=== PATIENT | male | born 1940 | race Caucasian/White ===

== ENCOUNTER 2018-05-15 10:30 | Day surgery (SDC) | payer MEDICARE ==
[2018-05-14 10:27] VITALS: BMI 21.1
[2018-05-15] MEDS ORDERED: Iodixanol 320 MG/ML 200 ML BOTTLE IV ONE (11:04)
[2018-05-15 11:23] LABS: BASO # 0.03 K/mm3 (0.0-2.0); BASO % 0.4 % (0.0-3.0); EOS # 0.1 (0.0-0.7); EOS % 0.7 % (1.5-5.0); GRAN # 5.46 (1.4-6.5); GRAN % 70.9 % (50.0-68.0); HEMOGLOBIN 15.9 g/dL (14.0-18.0); LYMPH # 1.8 (1.2-3.4); LYMPH % 22.9 % (22.0-35.0); MEAN CELL VOLUME 92.7 fl (80.0-105.0); MEAN CORPUSCULAR HEMOGLOBIN 32.3 pg (25.0-35.0); MEAN CORPUSCULAR HGB CONC 34.9 g/dl (31.0-37.0); MEAN PLATELET VOLUME 9.7 fl (7.0-11.0); MONO # 0.4 (0.1-0.6); MONO % 5.1 % (1.0-6.0); RBC 4.92 10^6/uL (3.5-6.1); WHITE BLOOD COUNT 7.7 10^3/ul (4.5-11.0)
[2018-05-15 11:25] VITALS: O2SAT 99
[2018-05-15 11:31] LABS: INR 0.97; PARTIAL THROMBOPLASTIN TIME 32.6 Seconds (25.1-36.5); PROTHROMBIN TIME 11.1 SECONDS (9.4-12.5)
[2018-05-15 11:32] LABS: BLOOD UREA NITROGEN 21 mg/dL (7-21); CALCIUM 9.4 mg/dL (8.4-10.5); GFR NON-AFRICAN AMERICAN 54; HDL CHOLESTEROL 69 mg/dL (29-60)
[2018-05-15 11:42] LABS: LDL CHOLESTEROL 114 mg/dL (0-129)
[2018-05-15] MEDS ORDERED: Lidocaine PF 2% (5 ml) Inj (For Cardiac Arrhy) ONE (13:15)
[2018-05-15] MEDS ORDERED: Adenosine 90 mg/30mL IV ONE (13:15)
[2018-05-15] MEDS ORDERED: Midazolam 2 MG/2 ML VIAL ONE ×2 (16:56→17:18)
[2018-05-15 22:10] VITALS: RESP 18; TEMP 97.8
[2018-05-15 22:12] VITALS: BP 134/75; PULSE 70
--- NOTE | 2018-05-30 16:47 | CARDCATH ---
PROCEDURE DATE: 05/15/2018 INDICATION: Mr. Ozzie Stiles is a 78-year-old male, who presented to [facility] with [id number] on 05/09/2018, underwent a diagnostic cardiac cath showing high-grade stenosis of the left circumflex and diagonal artery. He subsequently was discharged and brought back on 05/15/2018 to [facility] for his staged intervention of the left circumflex and the diagonal high-grade stenosis. PROCEDURE PERFORMED: Diagnostic coronary angiogram with percutaneous transluminal coronary angioplasty and stenting of mid left circumflex coronary artery, deployment of 3 x 28 and 3.5 x 18 [place] drug-eluting stent, regeneration from 90% down to 0%. Percutaneous transluminal coronary angioplasty, drug eluting stent of diagonal 1 with a 2.25 x 22 [place] drug eluting stent, regeneration from 75% down to 0% RISHI 3 flow. INTERVENTION PERFORMED: Radial approach was employed. PTCA, stenting of left circumflex was done. Initially a 3 balloon was used for dilatation, subsequently a 3 x 28 and 3.5 x 18 [place] drug eluting stents were deployed in the circ and regeneration down to 0% RISHI 3 flow. Subsequently, PTCA, stenting of the diagonal was done with deployment of a stent. Final angiogram done showed regeneration down to 0% RISHI 3 flow. IMPRESSION: Successful percutaneous transluminal coronary angioplasty, stenting of left circumflex with 2 drug-eluting stents. Successful percutaneous transluminal coronary angioplasty, stenting of diagonal with drug-eluting stent, regeneration down to 0%. RECOMMENDATIONS: The patient can be discharged home in 3 hours. Continue to do antiplatelet therapy for 1 year, guideline directed therapy for CAD. Brandon Roa MD
== END 2018-05-15 22:00 | disposition home or self-care (01) ==
LOC: CATH 10:30 → 2RSO 18:16 → CATH 22:00
PROVIDERS: ATTEND Internal Medicine Interventional Cardiology
DX: I21.4 Non-ST elevation (NSTEMI) myocardial infarction (principal); I25.10 Atherosclerotic heart disease of native coronary artery without angina pectoris; I10 Essential (primary) hypertension
CPT/HCPCS: 36415; 80048; 80061; 83036; 85025; 85175; 85610; 85730; 86850; 86900; 93458; 93571; 99152; 99153; C1725; C1760; C1769 ×3; C1874 ×3; C1887; C1894; C9600; C9601; J0153; J1644 ×2; J2250; J3010; J7040; Q9966